=== PATIENT | female | born 1990 | race African-American/Black ===

== ENCOUNTER 2025-06-28 20:07 | Emergency (ER) | payer BC ==
[~2025-06-28 20:07] MED LIST: Iopamidol 370 76% 100 ML VIAL ONE
[2025-06-28] MEDS ORDERED: Ondansetron PF 4 MG/2 ML Vial ONE (20:21)
[2025-06-28 20:22] LABS: Hematocrit 38.2 % (36.0-47.0); Hemoglobin 11.9 g/dL (12.0-16.0); MDiff Complete? YES; Mean Corpuscular Hemoglobin 27.1 pg (27.0-31.0); Mean Corpuscular Volume 86.9 fl (78.0-98.0); Platelet Count 240 10x3/uL (130-400); Red Blood Cell (RBC) Count 4.40 mill/uL (4.20-5.40); White Blood Cell (WBC) Count 9.2 10x3/uL (4.8-10.8)
[2025-06-28] MEDS ORDERED: Acetaminophen 500 MG TAB ONE (20:34)
[2025-06-28 20:41] LABS: ALT (SGPT) 14 U/L (Less than 34); AST (SGOT) 23 U/L (11-34); Albumin 3.9 g/dL (3.1-4.5); Alkaline Phosphatase 72 U/L (40-110); Anion Gap 18 mmol/L (10-20); BUN (Urea Nitrogen) 12 mg/dL (7.0-18.7); Bilirubin, Total 0.5 mg/dL (0.3-1.2); Calc. Creatinine Clearance 0 mL/min (70-130); Calcium 8.5 mg/dL (7.8-10.44); Carbon Dioxide 18 mmol/L (22-29); Chloride 107 mmol/L (98-107); Globulin 3.3 g/dL (2.4-3.5); Glucose 92 mg/dL (70-105); Lipase 25 U/L (8-78); Magnesium 1.7 mg/dL (1.6-2.6); Potassium 4.2 mmol/L (3.5-5.1); Sodium 139 mmol/L (136-145)
[2025-06-28 20:44] LABS: Troponin I Less than 0.010 ng/mL (< 0.028)
[2025-06-28 20:48] LABS: Glucose, Urine (Dipstick) Negative (Negative); Leukocyte Negative (Negative); Protein, Urine (Dipstick) Negative (Neg-Trace); Specific Gravity, Urine 1.020 (1.005-1.030)
[2025-06-28 20:51] LABS: CAUTI Indications for Culture Fever or rigors; RBC/HPF None Seen HPF (0-3)
[2025-06-28 20:52] LABS: Pregnancy Test - Urine (BHCG) Negative (Negative); Pregu Control Background? CLEAR/WHITE (CLR/WHITE); Pregu Control Bar Appear? YES (CONTROL BAR); Urine Culture Reflex No No
[2025-06-28] MEDS ORDERED: Cefepime 2 GM VIAL ONE (22:29)
[2025-06-28] MEDS ORDERED: Ibuprofen 800 MG TAB ONE (22:30)
[2025-06-29] MEDS ORDERED: Acetaminophen 500 MG TAB ONE (03:11)
== END 2025-06-29 05:55 | disposition short-term general hospital (02) ==
LOC: MADERS 20:07
DX: A41.9 Sepsis, unspecified organism (principal); J18.9 Pneumonia, unspecified organism; U09.9 Post COVID-19 condition, unspecified; Z79.899 Other long term (current) drug therapy
CPT/HCPCS: 71045; 71260; 74177; 80053; 81001; 81025; 83605; 83690; 83735; 83880; 84484; 85025; 87040; 87081; 87400; 87426; 87430; 93005; 94760; 96361; 96365; 96366; 96367; 96375; J0692; J2405; J3373; J7030; J7050; Q9967